=== PATIENT | male | born 1955 | race African-American/Black ===

== ENCOUNTER 2023-03-12 08:41 | Outpatient (CLI) | payer OTHER | END 2023-03-12 08:42 | disposition home or self-care (01) | LOC: CSHRAD 08:41 | PROVIDERS: ATTEND Chiropractor | DX: S32.9XXA Fracture of unspecified parts of lumbosacral spine and pelvis, initial encounter for closed fracture (principal); C85.10 Unspecified B-cell lymphoma, unspecified site; M77.8 Other enthesopathies, not elsewhere classified; Z96.642 Presence of left artificial hip joint | CPT/HCPCS: 72190 ==